=== PATIENT | female | born 1940 | race Caucasian/White ===

== ENCOUNTER → 2024-12-04 | Outpatient (CLI) | payer MEDICARE, BC, SELFPAY ==
--- NOTE | 2024-12-04 | XR_ITS ---
Examination: Left hip AP, lateral, AP pelvis 3 views Technique: Hip AP lateral, AP pelvis, 3 views Exam date and time: December 04, 2024, 1231 hours INDICATIONS: Left hip pain beginning 1 year ago. FINDINGS: Significant osteopenia. No hip fracture or dislocation Bilateral mild to moderate hip osteoarthritis IMPRESSION: Mild to moderate bilateral hip osteoarthritis.
--- NOTE | 2024-12-04 | XR_ITS ---
EXAMINATION: Lumbar spine 3 views TECHNIQUE: AP lateral, lateral lower lumbar spine 3 views Date and time: December 04, 2024, 12:46 p.m., comparison December 21, 2006 INDICATIONS: Low back pain 1 year. FINDINGS: Lumbar dextroscoliosis 18 degrees Prominent osteopenia Chronic osteoporotic compressions L2 L1 No acute lumbar fracture Moderate to advanced diffuse lumbar degenerative disc disease with prominent spinal stenosis IMPRESSION: Moderate to advanced diffuse lumbar degenerative disc disease with significant spinal stenosis
== END | disposition home or self-care (01) ==
LOC: CDIM 11:59
PROVIDERS: PCP Family Medicine; Referring Provider Orthopaedic Surgery; Visit Provider Orthopaedic Surgery
DX: M16.0 Bilateral primary osteoarthritis of hip (principal); M51.360 Other intervertebral disc degeneration, lumbar region with discogenic back pain only; M48.061 Spinal stenosis, lumbar region without neurogenic claudication
CPT/HCPCS: 72100; 73502